=== PATIENT | male | born 1940 | race Caucasian/White ===

== ENCOUNTER 2020-04-09 08:56 | Outpatient (REF) | payer MEDICARE, SELFPAY ==
[2020-04-09 11:51] LABS: MANUAL DIFF FLAG NO
[2020-04-09 11:54] LABS: Basophils Percent Auto 0.5 % (0-2); Eosinophils Absolute Auto 0.1 X10*3/uL (0.0-0.4); Eosinophils Percent Auto 1.4 % (0-4); Hematocrit 36.9 % (42-52); Hemoglobin 12.3 g/dl (14.0-18.0); Imm Gran Abs Auto 0.04 X10*3/uL (0.00-0.03); Lymphocytes Absolute Auto 1.1 X10*3/uL (1.2-4.9); Lymphocytes Percent Auto 26.7 % (20-40); Mean Corpuscular HGB Conc 33.3 g/dl (31.0-36.0); Mean Platelet Volume 9.6 fL (9.4-12.4); Monocytes Absolute Auto 0.4 X10*3/uL (0.1-1.2); Monocytes Percent Auto 10.3 % (2-11); Neutrophils Absolute Auto 2.5 X10*3/uL (2.0-8.3); Neutrophils Percent Auto 60.1 % (45-73); Platelet Count 161 X10*3/uL (160-400); Red Blood Count 4.24 X10*6/uL (4.60-5.80); Red Cell Distribution Width 12.8 % (11.0-16.0); White Blood Count 4.2 X10*3/uL (4.8-10.8)
[2020-04-09 12:53] LABS: Alanine Aminotransferase 17 U/L (0-40); Albumin Level 4.2 g/dL (3.5-5.0); Alkaline Phosphatase 66 U/L (39-117); Anion Gap 13 (12-20); Aspartate Amino Transferase 23 U/L (5-37); Bilirubin Total 1.1 mg/dL (0.0-1.0); Blood Urea Nitrogen 22 mg/dL (9-16); Carbon Dioxide 27 mmol/L (22-29); Chloride 103 mmol/L (96-108); Estimated Glomerular Filt Rate > 60; Glucose Fasting 91 mg/dL (60-99); Iron 74 mcg/dL (45-160); Percent Iron Saturation 23 % (15-50); Sodium 138 mmol/L (135-145); Total Iron Binding Capacity 327 mcg/dL (228-428); Total Protein 7.2 g/dL (6.5-8.0); Unsaturated Iron Binding 253 ug/dL
[2020-04-09 12:55] LABS: Ferritin 290 ng/mL (20-250)
[2020-04-09 15:34] LABS: Folate > 20.0 ng/mL (> or = 4.0); Vitamin B12 793 pg/mL (200-900)
== END 2020-04-09 08:57 | disposition home or self-care (01) ==
LOC: HO.MANLDS 08:56
PROVIDERS: PCP Internal Medicine; Visit Provider Internal Medicine
DX: I10 Essential (primary) hypertension (principal); Z86.2 Personal history of diseases of the blood and blood-forming organs and certain disorders involving the immune mechanism
CPT/HCPCS: 36415; 80053; 82607; 82728; 82746; 83540; 85025

== ENCOUNTER 2020-07-02 07:46 | Outpatient (REF) | payer MEDICARE, SELFPAY ==
[2020-07-02 11:24] LABS: Cholesterol 163 mg/dL; HDL Cholesterol 80 mg/dL; LDL Cholesterol Calculated 72 mg/dl; Triglycerides 57 mg/dL
== END 2020-07-02 07:47 | disposition home or self-care (01) ==
LOC: HO.MANLDS 07:46
PROVIDERS: PCP Internal Medicine; Visit Provider Physician Assistant
DX: E78.5 Hyperlipidemia, unspecified (principal)
CPT/HCPCS: 36415; 80061

== ENCOUNTER 2021-06-03 09:55 | Outpatient (REF) | payer MEDICARE, SELFPAY ==
[2021-06-03 11:03] LABS: MANUAL DIFF FLAG NO
[2021-06-03 11:06] LABS: Basophils Percent Auto 0.4 % (0-2); Eosinophils Absolute Auto 0.1 X10*3/uL (0.0-0.4); Eosinophils Percent Auto 1.1 % (0-4); Hematocrit 37.9 % (42.0-52.0); Hemoglobin 12.6 g/dl (14.0-18.0); Imm Gran Abs Auto 0.04 X10*3/uL (0.00-0.03); Imm Gran Pct Auto 0.7 % (0.0-0.4); Lymphocytes Absolute Auto 1.2 X10*3/uL (1.2-4.9); Lymphocytes Percent Auto 22.3 % (20-40); Mean Corpuscular HGB Conc 33.2 g/dl (31.0-36.0); Mean Corpuscular Hemoglobin 28.4 pg (27.0-33.0); Mean Corpuscular Volume 85.6 fL (80.0-98.0); Mean Platelet Volume 9.8 fL (9.4-12.4); Monocytes Absolute Auto 0.5 X10*3/uL (0.1-1.2); Neutrophils Absolute Auto 3.5 x10*3/uL (2.0-8.3); Neutrophils Percent Auto 65.5 % (45-73); Platelet Count 196 X10*3/uL (160-400); Red Blood Count 4.43 X10*6/uL (4.60-5.80); Red Cell Distribution Width 13.5 % (11.0-16.0); White Blood Count 5.4 X10*3/uL (4.8-10.8)
[2021-06-03 11:55] LABS: Alanine Aminotransferase 21 U/L (0-40); Albumin Level 4.3 g/dL (3.5-5.0); Alkaline Phosphatase 74 U/L (39-117); Anion Gap 14 (12-20); Aspartate Amino Transferase 25 U/L (5-37); Bilirubin Total 1.4 mg/dL (0.0-1.0); Blood Urea Nitrogen 24 mg/dL (9-16); Calcium 9.6 mg/dL (8.4-10.2); Carbon Dioxide 24 mmol/L (22-29); Chloride 103 mmol/L (96-108); Cholesterol 183 mg/dL; Estimated Glomerular Filt Rate 54; Glucose Random 100 mg/dL (60-115); HDL Cholesterol 75 mg/dL; LDL Cholesterol Calculated 96 mg/dl; Sodium 136 mmol/L (135-145); Total Protein 7.3 g/dL (6.5-8.0); Triglycerides 63 mg/dL
== END 2021-06-03 09:56 | disposition home or self-care (01) ==
LOC: HO.MANLDS 09:55
PROVIDERS: PCP Physician Assistant; Visit Provider Physician Assistant
DX: E78.2 Mixed hyperlipidemia (principal)
CPT/HCPCS: 36415; 80053; 80061; 85025

== ENCOUNTER 2022-01-25 08:59 | Outpatient (REF) | payer MEDICARE, SELFPAY ==
[2022-01-25 11:03] LABS: MANUAL DIFF FLAG NO
[2022-01-25 11:05] LABS: Basophils Percent Auto 0.5 % (0-2); Eosinophils Absolute Auto 0.1 X10*3/uL (0.0-0.4); Eosinophils Percent Auto 1.2 % (0-4); Hematocrit 35.3 % (42.0-52.0); Imm Gran Abs Auto 0.04 X10*3/uL (0.00-0.03); Imm Gran Pct Auto 0.9 % (0.0-0.4); Lymphocytes Absolute Auto 1.2 X10*3/uL (1.2-4.9); Lymphocytes Percent Auto 27.5 % (20-40); Mean Corpuscular Hemoglobin 28.8 pg (27.0-33.0); Mean Corpuscular Volume 84.9 fL (80.0-98.0); Mean Platelet Volume 9.8 fL (9.4-12.4); Monocytes Absolute Auto 0.4 X10*3/uL (0.1-1.2); Monocytes Percent Auto 10.2 % (2-11); Neutrophils Absolute Auto 2.6 x10*3/uL (2.0-8.3); Neutrophils Percent Auto 59.7 % (45-73); Platelet Count 148 X10*3/uL (160-400); Red Blood Count 4.16 X10*6/uL (4.60-5.80); Red Cell Distribution Width 12.8 % (11.0-16.0); White Blood Count 4.3 X10*3/uL (4.8-10.8)
[2022-01-25 11:15] LABS: Estimated Average Glucose 105 mg/dL; Hemoglobin A1c % 5.3 %
[2022-01-25 11:20] LABS: Alanine Aminotransferase 17 U/L (0-40); Albumin Level 3.9 g/dL (3.5-5.0); Alkaline Phosphatase 66 U/L (39-117); Anion Gap 13 (12-20); Aspartate Amino Transferase 19 U/L (5-37); Bilirubin Total 0.6 mg/dL (0.0-1.0); Blood Urea Nitrogen 21 mg/dL (9-16); Carbon Dioxide 25 mmol/L (22-29); Chloride 103 mmol/L (96-108); Cholesterol 139 mg/dL; Estimated Glomerular Filt Rate > 60; Glucose Fasting 100 mg/dL (60-99); HDL Cholesterol 58 mg/dL; LDL Cholesterol Calculated 70 mg/dl; Potassium 4.6 mmol/L (3.3-5.1); Sodium 136 mmol/L (135-145); Total Protein 6.5 g/dL (6.5-8.0); Triglycerides 55 mg/dL
== END 2022-01-25 09:00 | disposition home or self-care (01) ==
LOC: HO.MANLDS 08:59
PROVIDERS: Visit Provider Internal Medicine
DX: E78.2 Mixed hyperlipidemia (principal)
CPT/HCPCS: 36415; 80053; 80061; 83036; 85025